=== PATIENT | female | born 1970 | race Caucasian/White ===

== ENCOUNTER → 2016-12-12 | Outpatient (CLI) | payer BC ==
[~2016-12-12] MED LIST: AMITRIPTYLINE H10 M1 PO; NORCO 325 MG-51 TAB PO; ZESTRIL 10MG10 MG PO; ZOCOR 10MG10 MG PO
== END ==
LOC: COL.RAD 12:34
DX: R10.32 Left lower quadrant pain (principal); N83.8 Other noninflammatory disorders of ovary, fallopian tube and broad ligament; Z90.710 Acquired absence of both cervix and uterus

== ENCOUNTER → 2019-10-16 | Outpatient (CLI) | payer BC | LOC: MC.RAD 08:15 | DX: Z12.31 Encounter for screening mammogram for malignant neoplasm of breast (principal) ==

== ENCOUNTER → 2021-05-19 | Outpatient (CLI) | payer BC | LOC: MC.RAD 07:15 | DX: Z12.31 Encounter for screening mammogram for malignant neoplasm of breast (principal) ==

== ENCOUNTER → 2022-06-06 | Outpatient (CLI) | payer BC | LOC: MC.RAD 07:58 | DX: Z12.31 Encounter for screening mammogram for malignant neoplasm of breast (principal) ==